=== PATIENT | female | born 1985 | race Caucasian/White ===

== ENCOUNTER 2017-12-30 11:49 | Inpatient (IN) | payer OTHER ==
[~2017-12-30] VITALS: Ht 154.9 cm; Wt 80.0 kg
--- NOTE | 2018-01-01 08:26 | PR ---
[facility] [address] [facility] [place], [place] [address] Signed PP Progress Notes Datetime Report Generated by ISAURO: 01/01/2018 08:26 SUBJECTIVE: [id number] Pain: Within normal limits Vital Signs: [id number] Vital Signs: Reviewed; Within Normal Limits EXAM: [id number] Cardiovascular: Not Done Respiratory: Not Done Abdomen/Uterus: Abnormal Lochia: Normal Vulva/Perineum: Not Done Breasts: Not Done CVA Tenderness: Not Done Extremities: Normal Incision: Not Applicable Progress: Normal Exam Comments: Fundus firm, NT @ U-1. H/H 9.5/27.7, WBC 16.4, plat 168k IMPRESSION/PLAN/PROCEDURES: [id number] Impression: Normal progression Plan: Continue present management Procedures: None Progress Notes: Doing well. Probable D/C in am. Signing Physician: Adalgisa Molina MD Copies: ~ *Electronically Signed* 01/01/18 08 ADALGISA MOLINA MD PATIENT NAME: WILDER FRANCISCO PROGRESS NOTE DATE OF : 89 PHYSICIAN: ADALGISA MOLINA MD RPT #: [id number] REPORT IS CONFIDENTIAL AND NOT TO BE RELEASED WITHOUT AUTHORIZATION
--- NOTE | 2018-01-02 06:52 | PR ---
[facility] [address] [facility] [place], [place] [address] Signed PP Progress Notes Datetime Report Generated by CPN: 01/02/2018 06:52 SUBJECTIVE: [id number] Pain: Within normal limits Vital Signs: [id number] Vital Signs: Reviewed; Within Normal Limits EXAM: [id number] Cardiovascular: Not Done Respiratory: Not Done Abdomen/Uterus: Abnormal Lochia: Normal Vulva/Perineum: Not Done Breasts: Not Done CVA Tenderness: Not Done Extremities: Normal Incision: Not Applicable Progress: Normal Exam Comments: Fundus firm, NT @ U-1. IMPRESSION/PLAN/PROCEDURES: [id number] Impression: Normal progression Plan: Discharge Procedures: None Progress Notes: Doing well. She is ready for D/C. Signing Physician: Nina Molina MD Copies: ~ *Electronically Signed* 01/02/18 0652 NINA MOLINA MD PATIENT NAME: WILDER FRANCISCO PROGRESS NOTE DATE OF : 89 PHYSICIAN: NINA MOLINA MD RPT #: [id number] REPORT IS CONFIDENTIAL AND NOT TO BE RELEASED WITHOUT AUTHORIZATION
== END 2018-01-02 11:00 | disposition home or self-care (01) | DRG 775 ==
LOC: FBCO 11:49 → FBC 12:00 → FBCO 01-12 13:32
PROVIDERS: ADMIT Obstetrics & Gynecology
PROC: 00HU33Z Insertion of Infusion Device into Spinal Canal, Percutaneous Approach (ICD-10-PCS; 2017-12-30)
PROC: 3E0R3BZ Introduction of Anesthetic Agent into Spinal Canal, Percutaneous Approach (ICD-10-PCS; 2017-12-30)
PROC: 10E0XZZ Delivery of Products of Conception, External Approach (ICD-10-PCS; principal; 2017-12-31)
PROC: 0KQM0ZZ Repair Perineum Muscle, Open Approach (ICD-10-PCS; 2017-12-31)
DX: O42.92 Full-term premature rupture of membranes, unspecified as to length of time between rupture and onset of labor (principal); O70.1 Second degree perineal laceration during delivery; O76 Abnormality in fetal heart rate and rhythm complicating labor and delivery; O26.03 Excessive weight gain in pregnancy, third trimester; O69.1XX0 Labor and delivery complicated by cord around neck, with compression, not applicable or unspecified; Z88.0 Allergy status to penicillin; Z88.8 Allergy status to other drugs, medicaments and biological substances; Z3A.38 38 weeks gestation of pregnancy; Z37.0 Single live birth
CPT/HCPCS: 01960; 36415; 85027; J2590; J7120

== ENCOUNTER 2021-08-29 05:20 | Inpatient (IN) | payer OTHER ==
[~2021-08-29] VITALS: Ht 154.9 cm; Wt 75.8 kg
[2021-08-29] MEDS ORDERED: PRENA1 PEARL S1 EACH PO (07:24)
[2021-08-29] MEDS ORDERED: IRON18 MG PO (07:25)
[2021-08-29] MEDS ORDERED: CAL-MAG TABLET1 EACH PO (07:25)
--- NOTE | 2021-08-29 12:14 | PR ---
[facility] [address] [facility] [place], [place] [address] Signed Progress Notes IP Datetime Report Generated by CPDimitry: 08/29/2021 12:14 PROGRESS NOTES: [id number] Impression: Reassuring Heart Rate Procedures: Intrauterine Pressure Catheter Other Plans: position changes VITAL SIGNS: [id number] Vital Signs: Reviewed; Within Normal Limits EXAM: [id number] Dilatation: 4.0 Effacement: 70 Station: -3 Contractions: not picking up well MEMBRANES: [id number] Amniotic Fluid Color: Clear Comments: Progressing slowly. Will continue with pitocin and position changes to bring baby down more centrally as baby seems asynclitic. Will increase pit as needed though her present contractions do seem to be adequate. FETUS A: [id number] FHR Baseline: 120 Variability: Moderate 6-25bpm Accelerations: 15X15 Decelerations: None FHR Category: Category I Presentation: Vertex Comments on Fetus A: No evidence of metabolic acidosis FETUS B: [id number] Signing Physician: Adalgisa Molina MD Copies: ~ *Electronically Signed* 08/29/21 1214 ADALGISA MOLINA MD PATIENT NAME: WILDER FRANCISCO PROGRESS NOTE DATE OF : 89 PHYSICIAN: ADALGISA MOLINA MD RPT #: [id number] REPORT IS CONFIDENTIAL AND NOT TO BE RELEASED WITHOUT AUTHORIZATION
--- NOTE | 2021-08-30 07:43 | PR ---
[facility] [address] [facility] [place] [facility] [place], [place] [address] Signed PP Progress Notes Datetime Report Generated by ISAURO: 08/30/2021 07:43 SUBJECTIVE: [id number] Pain: Within Normal Limits Pain Comments: little sleep overnight Vital Signs: [id number] Vital Signs: Reviewed; Within Normal Limits Cardiovascular: Not Done Respiratory: Not Done Abdomen/Uterus: Abnormal Lochia: Normal Vulva/Perineum: Not Done Breasts: Not Done CVA Tenderness: Not Done Extremities: Normal Incision: Not Applicable Progress: Normal Exam Comments: Fundus firm, NT @ U-2. H/H 11.6/34.8, WBC 12.1, plat 215k IMPRESSION/PLAN/PROCEDURES: [id number] Impression: Normal Progression Plan: Continue Present Management Progress Notes: Doing well. She is not sure she desires discharge at this time. Will see how the day goes before determining discharge. Signing Physician: Adalgisa Molina MD Copies: ~ *Electronically Signed* 08/30/21 0743 ADALGISA MOLINA MD PATIENT NAME: WILDER FRANCISCO PROGRESS NOTE DATE OF : 89 PHYSICIAN: ADALGISA MOLINA MD RPT #: [id number] REPORT IS CONFIDENTIAL AND NOT TO BE RELEASED WITHOUT AUTHORIZATION
--- NOTE | 2021-08-30 14:26 | NUR ---
PT ALERT, ORIENTED AND CARING FOR HER NEW SON MORTEZA. PT, BABY AND SIG OTHER DOING WELL. GAVE BLESSING, JENNIFER TO HAVE THIS MOMENT. WILL FOLLOW NEEDED
--- NOTE | 2021-08-31 06:12 | PR ---
[facility] [address] [facility] [place] [address] Signed PP Progress Notes Datetime Report Generated by CPN: 08/31/2021 06:12 SUBJECTIVE: [id number] Pain: Within Normal Limits Pain Comments: little sleep overnight Vital Signs: [id number] Vital Signs: Reviewed; Within Normal Limits Cardiovascular: Not Done Respiratory: Not Done Abdomen/Uterus: Abnormal Lochia: Normal Vulva/Perineum: Not Done Breasts: Not Done CVA Tenderness: Not Done Extremities: Normal Incision: Not Applicable Progress: Normal Exam Comments: Fundus firm, NT @ U-1. IMPRESSION/PLAN/PROCEDURES: [id number] Impression: Normal Progression Plan: Discharge Progress Notes: Doing well though still not much sleep. She is ready for D/C. Signing Physician: Nina Molina MD Copies: ~ *Electronically Signed* 08/31/21611 NINA MOLINA MD PATIENT NAME: WILDER FRANCISCO PROGRESS NOTE DATE OF : 89 PHYSICIAN: NINA MOLINA MD RPT #: [id number] REPORT IS CONFIDENTIAL AND NOT TO BE RELEASED WITHOUT AUTHORIZATION
== END 2021-08-31 11:49 | disposition home or self-care (01) | DRG 807 ==
LOC: FBCO 05:20 → FBC 05:48
PROVIDERS: ADMIT Obstetrics & Gynecology; ATTEND Obstetrics & Gynecology
PROC: 10D07Z6 Extraction of Products of Conception, Vacuum, Via Natural or Artificial Opening (ICD-10-PCS; principal; 2021-08-29)
PROC: 0HQ9XZZ Repair Perineum Skin, External Approach (ICD-10-PCS; 2021-08-29)
DX: O76 Abnormality in fetal heart rate and rhythm complicating labor and delivery (principal); Z37.0 Single live birth; Z3A.38 38 weeks gestation of pregnancy; Z20.822 Contact with and (suspected) exposure to COVID-19; O70.0 First degree perineal laceration during delivery; O69.1XX0 Labor and delivery complicated by cord around neck, with compression, not applicable or unspecified; O40.3XX0 Polyhydramnios, third trimester, not applicable or unspecified; Z90.89 Acquired absence of other organs; Z88.0 Allergy status to penicillin; Z88.8 Allergy status to other drugs, medicaments and biological substances; Z79.899 Other long term (current) drug therapy
CPT/HCPCS: 01960; 82803; 85027; A9270; J2001; J2590; J7121; U0003

== ENCOUNTER 2023-03-27 06:12 | Inpatient (IN) | payer OTHER ==
[~2023-03-27] VITALS: Ht 154.9 cm; Wt 76.2 kg
--- OUTSIDE RECORDS SUMMARY | ~2023-03-27 | XMS | Continuity of Care Document ---
Demographics + + + | Address | [address] | | | [place] [address] | + + + | Preferred Language | Unknown | + + + | Marital Status | Never | + + + | Yazidism Affiliation | Unknown | + + + | Race | White | + + + | Ethnic Group | Unknown | + + + Author + + + | Author | [facility] | + + + | Organization | [facility] | + + + | Address | [address] | | | [place] [address] | + + + | Phone | | + + + Care Team Providers + + + + | Care Rack Carrier Name | Role | Phone | + + + + Unavailable | Unavailable | + + + + Allergies and Intolerances + + + + + + | date | description | facility | reaction | severity | + + + + + + | (no date) | phenobarbital | [facility] | (no reaction) | (no severity) | + + + + + + | (no date) | penicillin G | [facility] | (no reaction) | (no severity) | + + + + + + Encounters No information. Functional Status No information. Immunizations No information. Medications No information. Problems No information. Procedures No information. Results/Labs No information. Social History No information. Vital Signs No information."
[~2023-03-27 06:12] MED LIST: CAL-MAG TABLET1 EACH PO; IRON18 MG PO; PRENA1 PEARL S1 EACH PO
[2023-03-27 06:53] LABS: AMPHETAMINES, UR NEGATIVE (NEGATIVE); BARBITURATES, UR NEGATIVE (NEGATIVE); BENZODIAZEPINES, UR NEGATIVE (NEGATIVE); BUPRENORPHINE,UR NEGATIVE (NEGATIVE); COCAINE, UR NEGATIVE (NEGATIVE); MARIJUANA (THC), UR NEGATIVE (NEGATIVE); MDMA, UR NEGATIVE (NEGATIVE); METHADONE, UR NEGATIVE (NEGATIVE); METHAMPHETAMINE, UR NEGATIVE (NEGATIVE); OPIATES, UR NEGATIVE (NEGATIVE); OXYCODONE, UR NEGATIVE (NEGATIVE); PHENCYCLIDINE, UR NEGATIVE (NEGATIVE); TRICYCLIC ANTIDEPRESSANT, UR NEGATIVE (NEGATIVE)
[2023-03-27 07:09] LABS: HEMATOCRIT 32.7 % (35.0-50.0); HEMOGLOBIN 10.9 g/dL (12.0-18.0); MCHC 33.5 g/dl (30-36); MCV 89.6 fl (81-99); RBC 3.64 M/ul (4.3-5.7); RDW 13.5 (10.5-15.0)
[2023-03-27 07:56] LABS: ABO A; ANTIBODY SCREEN NEGATIVE; RH POSITIVE
[2023-03-27 08:56] VITALS: BP 109/67
--- NOTE | 2023-03-27 17:51 | PR ---
[facility] [address] [facility] [place], [place] [address] Signed Progress Notes IP Datetime Report Generated by CPN: 03/27/2023 17:51 PROGRESS NOTES: [id number] Impression: Reassuring Heart Rate Procedures: Sterile Vag Exam Plan: Continue Present Management VITAL SIGNS: [id number] Vital Signs: Reviewed; Within Normal Limits EXAM: [id number] Dilatation: 3.0 Effacement: 50 Station: -3 Contractions: rare MEMBRANES: [id number] Comments: Progressing and feeling the contractions more. AROM could not be done as the cervix was so posterior. Will observe for 30 min and then have her ambulate again. FETUS A: [id number] FHR Baseline: 120 Variability: Moderate 6-25bpm Accelerations: 15X15 Decelerations: None FHR Category: Category I Presentation: Vertex FETUS B: [id number] Signing Physician: Nina Molina MD Copies: ~ *Electronically Signed* 03/27/23 175 NINA MOLINA MD PATIENT NAME: WILDER FRANCISCO PROGRESS NOTE DATE OF : 89 PHYSICIAN: NINA MOLINA MD RPT #: [id number] REPORT IS CONFIDENTIAL AND NOT TO BE RELEASED WITHOUT AUTHORIZATION
--- NOTE | 2023-03-27 19:35 | PR ---
[facility] [address] [facility] [place], [place] [address] Signed Progress Notes IP Datetime Report Generated by CPN: 03/27/2023 19:34 PROGRESS NOTES: [id number] Impression: Normal Progression of Labor Procedures: Artificial ROM; Sterile Vag Exam Plan: Continue Present Management VITAL SIGNS: [id number] Vital Signs: Reviewed; Within Normal Limits EXAM: Q5882509 Dilatation: 3.0 Effacement: 50 Station: -3 Contractions: rare MEMBRANES: [id number] Comments: Progressing. Will continue now that AROM has been done. FETUS A: [id number] FHR Baseline: 120 Variability: Moderate 6-25bpm Accelerations: 15X15 Decelerations: None FHR Category: Category I Presentation: Vertex FETUS B: [id number] Signing Physician: Nina Molina MD Copies: ~ *Electronically Signed* 03/27/231933 NINA MOLINA MD PATIENT NAME: WILDER FRANCISCO PROGRESS NOTE DATE OF : 89 PHYSICIAN: NINA MOLINA MD RPT #: [id number] REPORT IS CONFIDENTIAL AND NOT TO BE RELEASED WITHOUT AUTHORIZATION
--- NOTE | 2023-03-27 21:12 | PR ---
[facility] [address] [facility] [place] [facility] [place], [place] [address] Signed Progress Notes IP Datetime Report Generated by CPN: 03/27/2023 21:12 PROGRESS NOTES: [id number] Impression: Normal Progression of Labor Procedures: Sterile Vag Exam Plan: Continue Present Management VITAL SIGNS: [id number] Vital Signs: Reviewed; Within Normal Limits EXAM: E9905222 Dilatation: 8.0 Effacement: 100 Station: 0 Contractions: rare MEMBRANES: [id number] Comments: Comfortable. Progressing well. FETUS A: [id number] FHR Baseline: 120 Variability: Moderate 6-25bpm Accelerations: 15X15 Decelerations: None FHR Category: Category I Presentation: Vertex FETUS B: [id number] Signing Physician: Nina Molina MD Copies: ~ *Electronically Signed* 03/27/232111 NINA MOLINA MD PATIENT NAME: WILDER FRANCISCO PROGRESS NOTE DATE OF : 89 PHYSICIAN: NINA MOLINA MD RPT #: [id number] REPORT IS CONFIDENTIAL AND NOT TO BE RELEASED WITHOUT AUTHORIZATION
[2023-03-28 05:24] LABS: HEMATOCRIT 31.5 % (35.0-50.0); HEMOGLOBIN 10.5 g/dL (12.0-18.0); MCH 29.3 (27-36); MCHC 33.5 g/dl (30-36); MCV 87.6 fl (81-99); RBC 3.6 M/ul (4.3-5.7); RDW 13.7 (10.5-15.0)
--- NOTE | 2023-03-28 09:02 | PR ---
[facility] [address] [facility] [place] [address] Signed PP Progress Notes Datetime Report Generated by CPDimitry: 03/28/2023 09:02 SUBJECTIVE: [id number] Pain: Within Normal Limits Vital Signs: [id number] Vital Signs: Reviewed; Within Normal Limits Cardiovascular: Not Done Respiratory: Not Done Abdomen/Uterus: Abnormal Lochia: Normal Vulva/Perineum: Not Done Breasts: Not Done CVA Tenderness: Not Done Extremities: Normal Incision: Not Applicable Progress: Normal Exam Comments: Fundus firm, NT @ U-2. H/H 10.5/31.5, WBC 13.4, plat 206k IMPRESSION/PLAN/PROCEDURES: [id number] Impression: Normal Progression Plan: Continue Present Management Progress Notes: Doing well. Will plan for D/C in the am. Signing Physician: Adalgisa Molina MD Copies: ~ *Electronically Signed* 03/28/23901 ADALGISA MOLINA MD PATIENT NAME: WILDER FRANCISCO PROGRESS NOTE DATE OF : 89 PHYSICIAN: ADALGISA MOLINA MD RPT #: [id number] REPORT IS CONFIDENTIAL AND NOT TO BE RELEASED WITHOUT AUTHORIZATION
--- NOTE | 2023-03-28 12:44 | NUR ---
1145 PT IN BED WITH BABY. BABY APPEARED TO BE NURSING. DAD AT TABLE WORKING ON COMPUTER. BOTH DENIED NEEDS. DECLINED PRAYER.
--- NOTE | 2023-03-29 06:19 | PR ---
[facility] [address] [facility] [place], [place] [address] Signed PP Progress Notes Datetime Report Generated by CPN: 03/29/2023 06:19 SUBJECTIVE: [id number] Pain: Within Normal Limits Nausea/Vomiting: Denies Vital Signs: [id number] Vital Signs: Reviewed; Within Normal Limits Cardiovascular: Not Done Respiratory: Not Done Abdomen/Uterus: Abnormal Lochia: Normal Vulva/Perineum: Not Done Breasts: Not Done CVA Tenderness: Not Done Extremities: Normal Incision: Not Applicable Progress: Normal Exam Comments: Fundus firm, NT @ U-2 IMPRESSION/PLAN/PROCEDURES: [id number] Impression: Normal Progression Plan: Discharge Procedures: None Progress Notes: Doing well. She is ready for D/C. Signing Physician: Nina Molina MD Copies: ~ *Electronically Signed* 03/29/23 06 NINA MOLINA MD PATIENT NAME: WILDER FRANCISCO PROGRESS NOTE DATE OF : 89 PHYSICIAN: NINA MOLINA MD RPT #: [id number] REPORT IS CONFIDENTIAL AND NOT TO BE RELEASED WITHOUT AUTHORIZATION
== END 2023-03-29 11:20 | disposition home or self-care (01) | DRG 807 ==
LOC: FBC 06:12 → MS 15:56 → FBC 15:57
PROVIDERS: ADMIT Obstetrics & Gynecology; ATTEND Obstetrics & Gynecology
PROC: 10E0XZZ Delivery of Products of Conception, External Approach (ICD-10-PCS; principal; 2023-03-27)
PROC: 10907ZC Drainage of Amniotic Fluid, Therapeutic from Products of Conception, Via Natural or Artificial Opening (ICD-10-PCS; 2023-03-27)
PROC: 3E0R3BZ Introduction of Anesthetic Agent into Spinal Canal, Percutaneous Approach (ICD-10-PCS; 2023-03-27)
PROC: 00HU33Z Insertion of Infusion Device into Spinal Canal, Percutaneous Approach (ICD-10-PCS; 2023-03-27)
DX: O32.0XX0 Maternal care for unstable lie, not applicable or unspecified (principal); Z37.0 Single live birth; O76 Abnormality in fetal heart rate and rhythm complicating labor and delivery; Z3A.39 39 weeks gestation of pregnancy; Z88.0 Allergy status to penicillin; Z88.8 Allergy status to other drugs, medicaments and biological substances
CPT/HCPCS: 36415; 85027; 86850; 86900; 86901; J2590